=== PATIENT | male | born 1985 | race Caucasian/White ===

== ENCOUNTER → 2018-07-27 | Outpatient (CLI) | payer OTHER ==
[~2018-07-27] MED LIST: LAMO200T3 PO
--- NOTE | 2018-07-27 13:33 | KCIC ---
EXAM: AP view of skull/orbits DATE: 07/27/2018 1:15 PM CLINICAL HISTORY: Pre-MRI history of metal to the eye COMPARISON: None available. FINDINGS: Single view of the skull is negative for retained radiopaque foreign body projected at the orbits or visualized calvarium. Negative definite fracture. Limited profile regional paranasal sinuses negative for air/fluid level. Scattered dental amalgam is seen. IMPRESSION: Negative frontal view for retained radiopaque foreign body of the orbits. Electronically signed by: Bert Wyatt MD (07/27/2018 1:30 PM) [id number]
--- NOTE | 2018-07-27 14:24 | KCIC ---
MRI of the cervical spine without contrast 07/27/2018 CLINICAL HISTORY: Neck pain which radiates down the right shoulder. TECHNIQUE: Unenhanced T1-weighted, T2-weighted and inversion recovery sagittal and gradient echo and T2-weighted axial images of the cervical spine were obtained. FINDINGS: Very mild lateral curvature of the cervical spine is seen convex to the left. There is straightening of the normal cervical lordosis. Degenerative signal changes are seen involving all of the disks of the cervical spine. Loss of height of the C5-6 and C6-7 discs is noted. Degenerative signal changes are seen within the marrow surrounding these discs. No area of abnormal signal intensity is seen involving the cervical spinal cord. At the C2-3, C3-4 and C4-5 disc spaces there are minimal to mild generalized disc bulges. Degenerative changes are seen involving the uncovertebral and facet joints bilaterally. These findings do not result in significant central spinal canal or neural foraminal stenosis. At the C5-6 disc space is a mild generalized disc bulge. Degenerative changes are seen involving the uncovertebral and facet joints, right greater than left. These findings when combined efface the anterior and posterior CSF resulting in mild central spinal canal stenosis without evidence of cord impingement. Mild right neural foraminal stenosis is seen. The left neural foramen is patent. At the C6-7 disc space there is a mild generalized disc bulge. Superimposed on the disc bulge is a right paracentral focal disc protrusion. This measures 4 mm in AP diameter. Degenerative changes are seen involving the uncovertebral and facet joints, right greater than left. These findings when combined result in mild right greater than left central spinal canal stenosis without evidence of cord impingement. Mild right neural foraminal stenosis is seen. The left neural foramen is patent. At the C7-T1 disc space there is a minimal generalized disc bulge. Degenerative changes are seen involving the facet joints bilaterally. These findings do not result in significant central spinal canal or neural foraminal stenosis. IMPRESSION: Degenerative changes are seen throughout the cervical spine. These findings result in mild central spinal canal stenosis at C5-6 and mild right greater than left central spinal canal stenosis at C6-7 without evidence of cord impingement. Mild right neural foraminal stenosis is seen at C5-6 and C6-7. Electronically signed by: Chucky Cali MD (07/27/2018 2:21 PM) [id number]
== END | disposition home or self-care (01) ==
LOC: KCIC MRI 13:04
PROVIDERS: ATTEND Orthopaedic Surgery
DX: M47.892 Other spondylosis, cervical region (principal); M48.02 Spinal stenosis, cervical region
CPT/HCPCS: 70030; 72141